=== PATIENT | male | born 1975 | race African-American/Black ===

== ENCOUNTER 2021-07-27 22:12 | Emergency (ER) | payer OTHER ==
[~2021-07-27] VITALS: Ht 190.5 cm; Wt 83.9 kg
[2021-07-28 02:26] LABS: ABSOLUTE NEUTROPHILS 2.3 thou/uL (1.4-8.2); BASOPHILS 1.1 % (0.0-2.0); EOSINOPHILS 2.9 % (0.0-3.0); HEMATOCRIT 35.3 % (42.0-52.0); HEMOGLOBIN 12.2 gm/dL (14.0-18.0); MCH 30.8 pg (26.0-34.0); MCHC 34.7 g/dL (28.0-37.0); MCV 88.6 fL (80.0-100.0); PLATELET COUNT 367 thou/uL (150-400); RBC 3.98 mil/uL (4.50-6.00); RDW 12.7 % (10.5-14.5); WBC 4.5 thou/uL (4.0-11.0)
[2021-07-28 02:30] LABS: CREATININE 0.8 mg/dL (0.7-1.3); POTASSIUM 3.7 mmol/L (3.5-5.1)
[2021-07-28 02:36] LABS: ALBUMIN 3.1 g/dL (3.4-5.0); TOTAL BILIRUBIN 0.1 mg/dL (0.2-1.0); TOTAL PROTEIN 6.5 g/dL (6.4-8.2)
[2021-07-28 07:46] VITALS: BP 132/88
== END 2021-07-28 05:08 | disposition home or self-care (01) ==
LOC: ER 22:12
PROVIDERS: Emergency Medicine
DX: G62.9 Polyneuropathy, unspecified (principal)

== ENCOUNTER 2021-08-11 11:12 | Inpatient (IN) | payer OTHER ==
[~2021-08-11] VITALS: Ht 190.5 cm; Wt 81.6 kg
[2021-08-11 11:17] VITALS: BP 118/76
[2021-08-11 12:04] LABS: ABSOLUTE NEUTROPHILS 2.9 thou/uL (1.4-8.2); BASOPHILS 2.3 % (0.0-2.0); EOSINOPHILS 2.4 % (0.0-3.0); HEMATOCRIT 36.2 % (42.0-52.0); HEMOGLOBIN 12.7 gm/dL (14.0-18.0); LYMPHOCYTES 18.2 % (24.0-44.0); MCH 31.5 pg (26.0-34.0); MCHC 35.1 g/dL (28.0-37.0); MCV 89.6 fL (80.0-100.0); MONOCYTES 10.4 % (1.0-8.0); PLATELET COUNT 385 thou/uL (150-400); POLYS 66.7 % (36.0-66.0); RBC 4.04 mil/uL (4.50-6.00); RDW 13.2 % (10.5-14.5); WBC 4.3 thou/uL (4.0-11.0)
[2021-08-11 12:17] LABS: CALCIUM 8.8 mg/dL (8.5-10.1); CREATININE 0.8 mg/dL (0.7-1.3); POTASSIUM 3.8 mmol/L (3.5-5.1)
[2021-08-11 12:20] LABS: APTT 27.3 Seconds (24.5-32.8); INR 0.96; PROTIME 10.5 Seconds (10.5-12.1)
[2021-08-11 12:23] LABS: ALBUMIN 3.4 g/dL (3.4-5.0); TOTAL BILIRUBIN 0.2 mg/dL (0.2-1.0); TOTAL PROTEIN 7.6 g/dL (6.4-8.2)
--- NOTE | 2021-08-11 16:01 | NUR ---
45-year-old male presents to the ED ambulatory with complaint of possible infection of the right foot. Pt had been in the ED on 07-27-21 with bilateral foot pain and tingling and was diagnosed with peripheral neuropathy. In the preceding 4-5 days the patient notes open areas on his toes of his right foot and the foot itself increasing in size and now becoming painful at times. ID NOW shows negative and patient reports in Triage assessment fully vaccinated with Pfizer in 2020. The patient has been admitted with Right foot multiple ulcerated toes wound and cellulites, right foot edema, currently homeless with tobacco and marijuana use. The record shows that the patient is listed as A&O x4 but does list a brother of Giacomo Morataya at [phone]. CM will alert [facility] to screen for assistance and will work the medical team on a determination of current diagnosis, treatment plan and goals for need for discharge planning. As care progresses CM will continue to follow for discharge needs.
[2021-08-11 16:36] VITALS: BP 140/75
[2021-08-11 18:00] VITALS: BP 122/88
--- NOTE | 2021-08-11 18:23 | NUR ---
tech assist to CT
--- NOTE | 2021-08-11 19:32 | NUR ---
BEDSIDE REPORT GIVEN TO NIGHT NURSE; INFORMED NURSE THAT PICTURES STILL NEED OBTAINED; PT FREE OF PAIN AND IN STABLE CONDITION
[2021-08-11 20:13] VITALS: BP 126/97
--- NOTE | 2021-08-12 05:03 | NUR ---
PT A&O x4. EDUCATION ABOUT CARE PLAN AND MEDICATION PROVIDED- PT VERBALIZED UNDERSTANDING. PT HAS BEEN MODERATELY INDEPENDENT IN ROOM. BLACK NECROTIC AREAS PRESENET IN BOTH FEET, BUT ARE MORE PROMINATE ON THE RIGHT. PT DENIES PAIN OVERNIGHT, APPEARS TO BE RESTING COMFORTABLY WITH HEADPHONES
[2021-08-12 08:10] VITALS: BP 129/93
--- NOTE | 2021-08-12 09:48 | NUR ---
ORDERS FOR EVAL AND TREAT. SPOKE WITH Pt WHO STATES HE JUST GOT UP WITH O.T. AND DID FINE. STATES HE IS HAVING NO DIFFICULTY WITH HIS MOBILITY. Pt DECLINING A FORMAL P.T. EVAL BUT APPEARS TO BE MOVING FINE
--- NOTE | 2021-08-12 14:35 | NUR ---
Met with patient who reports he is homeless. Reports currently staying with a friend which is ok with friend but not girlfriend. Patient agreeable to [employer] if cannot dc to friends home. Offered cab for either location. Patient reports he is homeless and usually at [address] [place] [address]. Patient requesting a boot. Gave homeless hotline number in dc instructions for future use if needed.
[2021-08-12 16:24] VITALS: BP 137/99
[2021-08-12 16:26] VITALS: BP 137/99
[2021-08-12 20:29] VITALS: BP 118/84
[2021-08-13 07:55] VITALS: BP 143/64
[2021-08-13 10:09] VITALS: BP 143/64
[2021-08-13] MEDS ORDERED: GENTAMICIN SULF15 GM TOP (11:42)
[2021-08-13] MEDS ORDERED: AMOX TR-K CLV1 EAC4 PO (11:42)
--- NOTE | 2021-08-13 12:36 | HC ---
[facility] [place] [address] CONSULTATION Name: KELLY ONEAL Room #: 4 ADM IN M.R.#: [id number] Admission: 08/11/21 Attend Phys: Gustavo Wren DO Discharge: Date of : 75 Report #: [id number] THIS REPORT FOR: cc: FAM - No family physician/PCP FAM - No family physician/PCP Eliezer Hennessy MD ~ DATE OF SERVICE: 08/12/2021 CHIEF COMPLAINT: Ulcerations of the toes of the right foot. HISTORY OF PRESENT ILLNESS: This is a 45-year-old male patient who apparently is homeless, who presented to [facility] with increasing pain, swelling and drainage from the toes of his right foot. He was seen earlier in the month for bilateral foot pain, was treated with oral gabapentin for possible neuropathy. He denies diabetes. He is, however, a smoker. He denies problems with wounds in the past. PAST MEDICAL HISTORY: Positive for the neuropathy previously diagnosed, history of "some ill-defined liver problem," and history of heat stroke a couple of years ago. SOCIAL HISTORY: The patient smokes cigarettes daily. Occasional marijuana. No alcohol use. FAMILY HISTORY: Noncontributory. ALLERGIES: No known drug allergies. MEDICATIONS: Include cefepime, enoxaparin, gentamicin, ondansetron, pantoprazole, vancomycin. REVIEW OF SYSTEMS: CONSTITUTIONAL: Denies fever, chills, weight loss. NEUROLOGICAL: The patient does have some neuropathic symptoms of the lower extremities. EYES: The patient denies visual changes, redness or drainage. ENT: The patient denies earache, nasal drainage, sore throat. CARDIOVASCULAR: The patient denies chest pain, palpitations, diaphoresis. PULMONARY: The patient denies cough, shortness of breath. GASTROINTESTINAL: The patient denies nausea, vomiting, diarrhea or abdominal pain. ORTHOPEDIC: The patient notes ulceration to the toes. Denies pain associated with this. Others systems in a 14-point review of systems are negative. [address] [address] CONSULTATION Name: KIMMYKELLY Room #: 4 ADM IN M.R.#: [id number] Admission: 08/11/21 Attend Phys: Gustavo Wren DO Discharge: Date of : 75 Report #: [id number] PHYSICAL EXAMINATION: VITAL SIGNS: The patient's vital at this time include temperature 36.8, pulse 65, respiration of 16, blood pressure 129/93. GENERAL: This is a well-developed, well-nourished male patient who appears to be in no distress. HEENT: Normocephalic. NECK: Supple. LUNGS: Clear. HEART: Regular rate and rhythm. ABDOMEN: Soft, bowel sounds present. EXTREMITIES: Lower extremities demonstrate easily palpable dorsalis pedis and posterior tibialis pulses bilaterally. There is good capillary refill. He has ulceration to the right second through fourth toes that are nearly circumferential with moderate crusting and some eschar and a small amount of eschar involving the right great toe. 1+ edema is noted. The left foot is intact with no signs of breakdown. CLINICAL IMPRESSION: 1. Ulceration to the toes of the right foot, possibly related to frostbite as he has been homeless and out in the snow with worsening ulceration. There is some level of infection at this time. 2. Possible peripheral neuropathy. Etiology has been indeterminate. He does not seem to have any known history of diabetes. RECOMMENDATIONS: At this point in time, we will recommend topical gentamicin ointment, Xeroform gauze to be changed daily. Hopefully, some of the crusting and eschar will loosen up. I suspect these areas will heal okay and I do not know that he needs any sort of formal debridements. Imaging studies include a CTA, which showed no evidence of inflow disease and normal x-rays. We will continue to follow. I appreciate being asked to see him in consultation. <ELECTRONICALLY SIGNED> By: Eliezer Hennessy MD 08/13/21 [id number] Eliezer Hennessy MD /nt
--- NOTE | 2021-08-13 13:51 | NUR ---
Patient to dc home to friends home. [facility] medication [facility]. Obtained shoes since patients was cut where toe located. resources for homelessness. cab voucher to home of friend no further needs.
--- NOTE | 2021-08-13 15:45 | NUR ---
Vouched for cane for patient as well. No further needs
[2021-08-13 17:53] VITALS: BP 143/64
== END 2021-08-13 18:33 | disposition home or self-care (01) | DRG 593 ==
LOC: ER 11:12 → EROBS 13:58 → 4S 13:58
PROVIDERS: Nurse Practitioner Family; ADMIT Pediatrics; ATTEND Pediatrics
DX: L97.518 Non-pressure chronic ulcer of other part of right foot with other specified severity (principal); L03.115 Cellulitis of right lower limb; Z20.822 Contact with and (suspected) exposure to COVID-19; F17.210 Nicotine dependence, cigarettes, uncomplicated; S90.934A Unspecified superficial injury of right lesser toe(s), initial encounter; F12.90 Cannabis use, unspecified, uncomplicated; G62.9 Polyneuropathy, unspecified; Z59.00 Homelessness unspecified; Z71.6 Tobacco abuse counseling; Z79.899 Other long term (current) drug therapy; Y93.89 Activity, other specified; Y92.89 Other specified places as the place of occurrence of the external cause; Y99.8 Other external cause status
CPT/HCPCS: 10195